=== PATIENT | female | born 1985 | race American Indian/Alaskan Native ===

== ENCOUNTER 2019-06-29 15:31 | Outpatient (CLI) | payer MEDICAID ==
[2019-06-29] MEDS ORDERED: LACTATED RINGERS 500 ML IV ONE (16:25)
[2019-06-29] MEDS: BETAMET ACET/BETAMET NA PH 6 MG/ML INJ 5 ML MDV IM SCH (16:55)
--- NOTE | 2019-06-29 18:41 | Ultrasound Report ---
ULTRASOUND OBSTETRIC third trimester Indication: Growth scan Findings: There is a single intrauterine . BPD = 8.48 cm = 34weeks, 1 day(s). Head circumference = 30.54= 34weeks, 0 day(s). Abdominal circumference = 30.60= 34weeks, 4 day(s). Femur length = 6.43 = 33weeks, 1 day(s). Overall estimated sonographic age = 34weeks, 0 day(s). heart rate is 149beats per minute. Estimated weight is 2345rams stomach, kidneys, bladder, diaphragm, four-chamber view of the heart, three-vessel cord and abd ominal CORD insertion are unremarkable. spine cannot be entirely evaluated position. Feta l intracranial anatomy could also not be evaluated due to position. position is cephalic. Cervix not seen due to position movement is present. Placenta is posterior and grade 1 . Amniotic fluid volume appears normal. Amniotic fluid index is 11.9 cm Impression: 1. Single living intrauterine with estimated sonographic age of 34 weeks, 0 day(s). 2. No sonographic abnormality identified. intracranial anatomy, spine anatomy are not well eval uated due to position. BIOPHYSICAL PROFILE INDICATION: Initial scan COMPARISON: None FINDINGS: breathing movement: 2/2 movement: 2/2 posture and tone: 2/2 Qualitative amniotic fluid volume: 2/2 IMPRESSION: Total score for biophysical profile is 8/8 heart rate is 164 bpm Signer Name: Jeffrey Flanagan MD Signed: 06/29/2019 6:36 PM Workstation Name: [facility]
[2019-06-29] MEDS ORDERED: METOCLOPRAMIDE 10 MG/2 ML INJ IV ONE (20:54)
[2019-06-29] MEDS: LACTATED RINGERS 1,000 ML IV SCH (21:10)
[2019-06-30] MEDS: LACTATED RINGERS 1,000 ML IV SCH (04:52)
--- NOTE | 2019-06-30 11:01 | History and Physical Report ---
History of Present Illness Date of examination: 06/30/19 Date of admission: 06/29/2019 Chief complaint: Presents due to labor Concerns with Cervical Dilation; Denies feeling CTX today History of present illness: Presents from [facility] at 33 5/7 Weeks with labor concerns. States she got care at [facility], records requested but not received. Past History Past Medical History: blood transfusion (2007: following PP Hemorrhage) Past Surgical History: no surgical history Family/Genetic History: diabetes (MGM), heart disease (MGM), hypertension (mother), cancer (mother: Colon CA), other (Lupus: MGM and aunt) Social history: other ([facility] inmate; released upon Admission) - Obstetrical History Expected Date of Delivery: 08/11/19 Actual Gestation: 34 Week(s) 0 Day(s) : 3 Para: 2 Hx # Term Pregnancies: 2 Number of Living Children: 2 #1 Gender: Female year: 2,[birth year] Birthweight: 3.175 kg Method of Delivery: Vaginal Gestational age at delivery: 41 #2 Infant Gender: Male year: 2,[birth year] Birthweight: 2.722 kg Method of Delivery: Vaginal Gestational age at delivery: 39 Medications and Allergies Allergies Allergy/AdvReac Type Severity Reaction Status Date / Time No Known Allergies Allergy Verified 06/29/19 16:12 Home Medications Medication Instructions Recorded Confirmed Last Taken Type Iron 1 tab PO BID 06/30/19 06/30/19 06/22/19 History Vitamin 1 tab PO DAILY 06/30/19 06/30/19 06/29/19 History Active Meds: Active Medications Betamethasone Acet/Betameth SodPhos (Celestone Soluspan) 12 mg IM Q24HR NATY Last Admin: 06/29/19 16:55 Dose: 12 mg Documented by: Lactated Ringer's (Lactated Ringers) 1,000 mls @ 125 mls/hr IV DIRECT NATY Last Admin: 06/30/19 04:52 Dose: 125 mls/hr Documented by: Review of Systems All systems: negative - Vital Signs Vital signs: Vital Signs Temp Pulse Resp BP 98.6 F 96 H 18 120/79 06/29/19 16:12 06/29/19 16:12 06/29/19 16:12 06/29/19 16:12 Temp Pulse Resp BP Pulse Ox 97.6 F 86 16 134/69 06/30/19 04:45 06/30/19 08:17 06/29/19 20:00 06/30/19 08:17 - Physical Exam Breasts: Positive: normal Cardiovascular: Regular rate Lungs: Positive: Clear to auscultation, Normal air movement Abdomen: Positive: normal appearance, soft, normal bowel sounds Genitourinary (Female): Positive: normal external genitalia, normal perenium Vagina: Positive: normal moisture Uterus: Positive: enlarged Anus/Rectum: Positive: normal perianal skin - Obstetrical FHR: category 1 Uterine Contraction Monitor Mode: External Cervical Dilatation: 3 (Intact, VTX) Cervical Effacement Percentage: 50 station: -3 Uterine Contraction Pattern: Absent Uterine Tone Measurement Phase: Resting Results All other labs normal. Assessment and Plan A: IUP @ 33 5/7 Weeks Category I Tracing Advanced Cervical Dilation P: IV Hydration Bedrest with Bathroom [employer] Betamethasome 12mg IM x 2 doses Continuous Monitoring OB Ultrasound Regular Diet May be discharged home after 2nd Dose of Betamethasome Follow Up with OB in one week
[2019-06-30] MEDS: BETAMET ACET/BETAMET NA PH 6 MG/ML INJ 5 ML MDV IM SCH (11:49)
[2019-06-30 12:36] VITALS: BP 134/69
== END 2019-06-30 12:33 | disposition home or self-care (01) ==
LOC: LD 15:31 → TRG 15:31
PROVIDERS: ATTEND Obstetrics & Gynecology
DX: O34.33 Maternal care for cervical incompetence, third trimester (principal); O62.9 Abnormality of forces of labor, unspecified; Z3A.34 34 weeks gestation of pregnancy
CPT/HCPCS: 76805; 76819; 96360; 96361; 96372; 96374; J0702; J2765; J7120

== ENCOUNTER 2021-10-11 17:12 | Emergency (ER) | payer SELFPAY ==
[2021-10-11 17:22] VITALS: BP 121/77
[2021-10-11 19:17] LABS: Bacteria,Urine 1+ /HPF (Negative); Bilirubin,Urine NEG (Negative); Blood,Urine LG (Negative); Color,Urine Yellow (Yellow); Mucus,Urine FEW /HPF; Protein,Urine <15 mg/dL mg/dL (Negative); Urobilinogen,Urine < 2.0 mg/dL (<2.0)
[2021-10-11 19:18] LABS: HCG Qualitative,Urine Negative (Negative)
[2021-10-11 19:19] LABS: RBC,Urine > 182.0 /HPF (0.0-6.0)
== END 2021-10-12 11:08 | disposition left against medical advice (07) ==
LOC: ED 17:12
DX: R30.9 Painful micturition, unspecified (principal); Z53.21 Procedure and treatment not carried out due to patient leaving prior to being seen by health care provider
CPT/HCPCS: 81001; 81025; 87086